=== PATIENT | female | born 1945 | race American Indian/Alaskan Native ===

== ENCOUNTER 2016-10-16 22:55 | Observation (INO) | payer OTHER ==
[~2016-10-16] VITALS: Ht 147.3 cm; Wt 61.0 kg
[~2016-10-16 22:55] MED LIST: AUGMENTIN875 MG PO; HYDROCHLOROTH12.5 M3 PO; LOSARTAN POTASS25 MG PO; PAXIL10 MG PO
[2016-10-17 00:08] LABS: TROP-I INTERPRETATION NEGATIVE; TROPONIN-I < 0.01 ng/mL (0.0-0.30)
[2016-10-17 00:10] LABS: CHLORIDE 89 mEq/L (99-109); POTASSIUM 3.3 mEq/L (3.7-5.4); SODIUM 127 mEq/L (136-147)
[2016-10-17 00:11] LABS: GLUCOSE 174 mg/dL (70-99)
[2016-10-17 00:13] LABS: ANION GAP 14 MEQ/L (2-14)
[2016-10-17 00:15] LABS: GFR ESTIMATE (CALCULATED) 47 mL/min/
[2016-10-17 00:16] LABS: UREA NITROGEN (BUN) 13 mg/dL (9-23)
[2016-10-17 00:23] LABS: HEMATOCRIT 32.1 % (36.0-46.0); MCH 29.9 PG (29.0-34.0); MCHC 37.1 G/DL (30.0-36.0); MCV 80.7 FL (83-99); RBC DIS.WIDTH-SD 37.9 % (39-53); RED BLOOD COUNT 3.98 M/uL (3.80-5.20); WHITE BLOOD COUNT 9.9 K/uL (4.1-10.2)
[2016-10-17 01:27] LABS: ADD MIUA? YES; BILIRUBIN NEGATIVE; BLOOD LARGE; COLOR AMBER ((YELLOW)); GLUCOSE (STRIP) NEGATIVE; KETONES NEGATIVE; LEUKOCYTES TRACE; NITRITE NEGATIVE; PROTEIN (STRIP) 30; SPECIFIC GRAVITY 1.009 (1.000-1.030)
[2016-10-17 01:30] LABS: MEAN PLAT.VOLUME 11.4 uM^3 (9.5-12.4); PLAT.SUFFICIENCY ADEQUATE; PLATELET COUNT 170 K/uL (156-360)
[2016-10-17 01:49] LABS: BACTERIA RARE /HPF; EPITHELIAL CELLS RARE /HPF; GRANULAR CASTS 0-5 /LPF; MUCUS NONE SEEN /LPF; RED BLOOD CELLS 15-20 /HPF (0-5); UCUL ADDED? NO; WHITE BLOOD CELLS 15-20 /HPF (0-5)
[2016-10-17 04:39] VITALS: BP 129/60
[2016-10-17 07:22] VITALS: BP 98/45
[2016-10-17 07:29] LABS: METH RESISTANT S AUREUS PCR NEGATIVE (NEGATIVE)
[2016-10-17 07:38] LABS: PROBE CHECK PASS; SPECIMEN PROCESSING CONTROL PASS
[2016-10-17 10:04] LABS: ANION GAP 8 MEQ/L (2-14); CHLORIDE 95 MEQ/L (99-109); GFR ESTIMATE (CALCULATED) > 59 mL/min/; GLUCOSE 147 mg/dL (70-99); POTASSIUM 3.6 MEQ/L (3.7-5.4); SAMPLE HEMOLYSIS CHECK 0; SAMPLE ICTERIC CHECK 0; SAMPLE LIPEMIA CHECK 0; SODIUM 131 MEQ/L (136-147); UREA NITROGEN (BUN) 12 mg/dL (9-23)
[2016-10-17 10:34] LABS: Estimated Average Glucose 111 mg/dL (70-123); HEMOGLOBIN A1c (GLYCOHEMOGLOB) 5.5 % HGB (Below 5.7)
[2016-10-17] MEDS ORDERED: PAXIL20 MG PO (11:46)
[2016-10-17] MEDS ORDERED: SIMVASTATIN20 MG PO (11:47)
[2016-10-17] MEDS ORDERED: BACTRIM,SEPT1 TABLET PO (11:47)
[2016-10-17 12:00] VITALS: BP 121/56
[2016-10-17 12:34] LABS: POINT-OF-CARE METER ID UU14162513
[2016-10-17 12:59] LABS: ANION GAP 7 MEQ/L (2-14); CHLORIDE 99 MEQ/L (99-109); POTASSIUM 3.9 MEQ/L (3.7-5.4); SAMPLE HEMOLYSIS CHECK 0; SAMPLE ICTERIC CHECK 0; SAMPLE LIPEMIA CHECK 0; SODIUM 136 MEQ/L (136-147)
[2016-10-17 13:04] LABS: GFR ESTIMATE (CALCULATED) > 59 mL/min/; GLUCOSE 135 mg/dL (70-99); UREA NITROGEN (BUN) 11 mg/dL (9-23)
[2016-10-17] MEDS ORDERED: CEFTIN500 MG PO (13:19)
[2016-10-17 13:25] LABS: HEMATOCRIT 31.8 % (36.0-46.0); MCHC 38.1 G/DL (30.0-36.0); MCV 81.5 FL (83-99); RBC DIS.WIDTH-CV 13.2 % (11.8-14.6); RBC DIS.WIDTH-SD 39.2 % (39-53); WHITE BLOOD COUNT 8.6 K/uL (4.1-10.2)
[2016-10-17 14:04] LABS: MEAN PLAT.VOLUME 11.6 uM^3 (9.5-12.4); PLAT.SUFFICIENCY ADEQUATE; PLATELET COUNT 200 K/uL (156-360)
== END 2016-10-17 14:48 | disposition home or self-care (01) ==
LOC: EME 22:55 → EDOF 10-17 03:05 → 5WEST 10-17 04:31
PROVIDERS: Emergency Medicine; Hospitalist; Nurse Practitioner Adult Health; Student in an Organized Health Care Education/Training Program
DX: R53.1 Weakness (principal); N39.0 Urinary tract infection, site not specified; E87.1 Hypo-osmolality and hyponatremia; E87.6 Hypokalemia; I10 Essential (primary) hypertension; E78.5 Hyperlipidemia, unspecified
CPT/HCPCS: 71020; 80048; 80048 91; 81003; 82948; 83036; 84484; 85027; 87641; 93005; 99281; 99285; G0378; J0696; J1644; J7030; J7050; S0028

== ENCOUNTER 2017-01-12 14:32 | Observation (INO) | payer OTHER ==
[~2017-01-12] VITALS: Ht 149.9 cm; Wt 60.7 kg
[~2017-01-12 14:32] MED LIST changes: +BACTRIM,SEPT1 TABLET PO; +CEFTIN500 MG PO; +PAXIL20 MG PO; +SIMVASTATIN20 MG PO
[2017-01-12 16:06] LABS: CHLORIDE 103 mEq/L (99-109); POTASSIUM 3.9 mEq/L (3.7-5.4); SODIUM 141 mEq/L (136-147)
[2017-01-12 16:07] LABS: GLUCOSE 126 mg/dL (70-99)
[2017-01-12 16:09] LABS: ANION GAP 9 MEQ/L (2-14)
[2017-01-12 16:11] LABS: GFR ESTIMATE (CALCULATED) > 59 mL/min/
[2017-01-12 16:12] LABS: UREA NITROGEN (BUN) 20 mg/dL (9-23)
[2017-01-12 16:13] LABS: HEMATOCRIT 36.6 % (36.0-46.0); MCH 30.8 PG (29.0-34.0); MCHC 36.6 G/DL (30.0-36.0); MCV 84.1 FL (83-99); MEAN PLAT.VOLUME 11.2 uM^3 (9.5-12.4); PLATELET COUNT 260 K/uL (156-360); RBC DIS.WIDTH-CV 13.4 % (11.8-14.6); RBC DIS.WIDTH-SD 40.9 % (39-53); RED BLOOD COUNT 4.35 M/uL (3.80-5.20)
[2017-01-12 22:26] VITALS: BP 199/81
[2017-01-12 22:30] VITALS: BP 152/70
[2017-01-12 22:35] LABS: Estimated Average Glucose 103 mg/dL (70-123)
[2017-01-12 22:37] LABS: HEMOGLOBIN A1c (GLYCOHEMOGLOB) 5.2 % HGB (Below 5.7)
[2017-01-13 00:42] VITALS: BP 171/76
[2017-01-13 03:49] VITALS: BP 143/65
[2017-01-13 05:53] LABS: HEMATOCRIT 36.2 % (36.0-46.0); MCH 30.7 PG (29.0-34.0); MCHC 36.7 G/DL (30.0-36.0); MCV 83.6 FL (83-99); MEAN PLAT.VOLUME 10.9 uM^3 (9.5-12.4); PLATELET COUNT 244 K/uL (156-360); RBC DIS.WIDTH-CV 13.2 % (11.8-14.6); RBC DIS.WIDTH-SD 40.7 % (39-53); RED BLOOD COUNT 4.33 M/uL (3.80-5.20)
[2017-01-13 07:35] LABS: HDL CHOLESTEROL 67 MG/DL (Desirable>=50); LDL CHOLESTEROL 134 mg/dL (Desirable<100); NON-HDL CHOLESTEROL 147 mg/dL (Desirable<160); SAMPLE HEMOLYSIS CHECK 0; SAMPLE ICTERIC CHECK 0; SAMPLE LIPEMIA CHECK 0; TOTAL CHOLESTEROL 214 mg/dL (Desirable<200); TRIGLYCERIDES 64 MG/DL (Normal: <150)
[2017-01-13 08:19] VITALS: BP 169/59
[2017-01-13] MEDS ORDERED: LOSARTAN POTASS50 MG PO (11:06)
[2017-01-13] MEDS ORDERED: ASPIR-LOW81 MG PO (11:06)
[2017-01-13 12:00] VITALS: BP 148/71
== END 2017-01-13 12:08 | disposition home or self-care (01) ==
LOC: EME 14:32 → 5WEST 20:46 → EDOF 20:46 → ENRESERV 20:48 → 5WEST 22:08
PROVIDERS: Hospitalist
DX: G45.9 Transient cerebral ischemic attack, unspecified (principal); I10 Essential (primary) hypertension; G43.909 Migraine, unspecified, not intractable, without status migrainosus; R79.89 Other specified abnormal findings of blood chemistry; D72.819 Decreased white blood cell count, unspecified; E78.5 Hyperlipidemia, unspecified; F41.9 Anxiety disorder, unspecified; R73.03 Prediabetes; Z86.73 Personal history of transient ischemic attack (TIA), and cerebral infarction without residual deficits
CPT/HCPCS: 70450; 70551; 71020; 80048; 80061; 83036; 85027; 93005; 93880; 99281; 99285; G0378; J1650; J2405